=== PATIENT | female | born 1995 | race Caucasian/White ===

== ENCOUNTER 2018-12-02 10:01 | Emergency (ER) | payer MEDICAID ==
[2018-12-02] MEDS: LIDOCAINE 2% (MDV) 20 ML INJ INJ (11:01)
[2018-12-02] MEDS: SILVER NITRATE SWAB TOP (11:04)
[2018-12-02] MEDS: BUPIVACAINE 0.25% (MPF) 30 ML INJ INJ (11:04)
== END 2018-12-02 12:53 | disposition home or self-care (01) ==
LOC: FTE 10:01
DX: O99.711 Diseases of the skin and subcutaneous tissue complicating pregnancy, first trimester (principal); L60.0 Ingrowing nail; L08.9 Local infection of the skin and subcutaneous tissue, unspecified; Z3A.10 10 weeks gestation of pregnancy
CPT/HCPCS: 11765; 99282-25

== ENCOUNTER 2018-12-04 11:08 | Emergency (ER) | payer MEDICAID | END 2018-12-04 13:17 | disposition home or self-care (01) | LOC: FTE 11:08 | DX: Z48.01 Encounter for change or removal of surgical wound dressing (principal) | CPT/HCPCS: 99283; Z7502 ==